=== PATIENT | male | born 1980 | race Hispanic/Latino ===

== ENCOUNTER 2021-06-03 09:21 | Emergency (ER) | payer OTHER ==
[~2021-06-03] VITALS: Ht 165.1 cm; Wt 102.1 kg
== END 2021-06-03 09:58 | disposition home or self-care (01) ==
LOC: ER 09:24
DX: S31.115A Laceration without foreign body of abdominal wall, periumbilic region without penetration into peritoneal cavity, initial encounter (principal); X58.XXXA Exposure to other specified factors, initial encounter; Y93.89 Activity, other specified
CPT/HCPCS: 99282

== ENCOUNTER 2024-06-06 20:12 | Inpatient (IN) | payer BC, OTHER ==
[~2024-06-06] VITALS: Ht 165.1 cm; Wt 88.5 kg
[2024-06-06 21:25] VITALS: RESP 18; TEMP 101.3
[2024-06-06 21:45] LABS: BASOPHILS % 0.2 % (0.0-1.0); HEMATOCRIT 46.3 % (38.2-49.6); HEMOGLOBIN 16.1 g/dL (14.0-18.0); LYMPHOCYTES # (AUTO) 0.8 (1.0-3.2); LYMPHOCYTES % 6.2 % (18.0-39.1); MEAN CORPUSCULAR HEMOGLOBIN 28.4 pg (28-32); MEAN CORPUSCULAR HGB CONC 34.8 g/dL (31-35); MEAN CORPUSCULAR VOLUME 81.7 fL (81-99); MONOCYTES # (AUTO) 1.4 (0.2-0.8); NEUTROPHILS # (AUTO) 10.2 (2.1-6.9); PLATELET COUNT 130 x10e3/uL (140-360); RED BLOOD COUNT 5.67 x10e6/uL (4.3-5.7); RED CELL DISTRIBUTION WIDTH 12.9 % (11.7-14.4); WHITE BLOOD COUNT 12.49 x10e3/uL (4.8-10.8)
[2024-06-06 22:05] LABS: ALBUMIN 3.8 g/dL (3.5-5.0); ANION GAP 15.8 mmol/L (8-16); BILIRUBIN,TOTAL 1.2 mg/dL (0.2-1.2); CALCIUM 8.9 mg/dL (8.4-10.2); CREATININE, SERUM 0.87 mg/dL (0.72-1.25); POTASSIUM 3.8 mmol/L (3.5-5.1); TOTAL PROTEIN 7.7 g/dL (6.5-8.1)
[2024-06-06] MEDS: Morphine 4mg INJECTION 4 MG/ML INJ IV STA (22:05)
[2024-06-06] MEDS: SODIUM CHLORIDE 0.9% 1000ML 1,000 ML IV STA (22:05)
[2024-06-06] MEDS: ONDANSETRON HCL INJ 2MG/ML 2ML 2 MG/ML VIAL IV STA (22:05)
[2024-06-06] MEDS: ACETAMINOPHEN 325 MG TAB PO STA (22:05)
[2024-06-06 22:15] VITALS: PULSE 93
[2024-06-06] MEDS ORDERED: IOPAMIDOL 370 MG/ML 100 ML INFUS..BTL INJ ONE (22:20)
[2024-06-06 23:46] LABS: CLARITY,URINE CLEAR (CLEAR); COLOR,URINE YELLOW (YELLOW); GLUCOSE, URINE NEGATIVE (NEGATIVE); KETONES,URINE NEGATIVE (NEGATIVE); LEUKOCYTE ESTERASE ,URINE NEGATIVE (NEGATIVE); NITRITE,URINE NEGATIVE (NEGATIVE); PH,URINE 6 (5 - 7); PROTEIN,URINE DIPSTICK 1+ (NEGATIVE)
[2024-06-06 23:47] LABS: BILIRUBIN,URINE NEGATIVE (NEGATIVE)
[2024-06-06 23:53] LABS: BACTERIA,URINE MODERATE /HPF; EPITHELIAL CELLS,URINE FEW /LPF
[2024-06-07] VITALS (8 sets, daily range): BP systolic 114–142; BP diastolic 62–82; PULSE 89–115; RESP 16–19; TEMP 97.5–101.7; O2SAT 96–99
[2024-06-07] MEDS: SODIUM CHLORIDE 0.9% 1000ML 1,000 ML IV SCH (04:00)
[2024-06-07] MEDS: ONDANSETRON HCL INJ 2MG/ML 2ML 2 MG/ML VIAL IV PRN (04:03)
[2024-06-07] MEDS: Morphine 4mg INJECTION 4 MG/ML INJ IV PRN (04:04)
[2024-06-07 06:43] LABS: BASOPHILS % 0.2 % (0.0-1.0); EOSINOPHILS % 0.1 % (0.0-6.0); HEMATOCRIT 44.3 % (38.2-49.6); HEMOGLOBIN 15.1 g/dL (14.0-18.0); LYMPHOCYTES # (AUTO) 0.8 (1.0-3.2); LYMPHOCYTES % 5.9 % (18.0-39.1); MEAN CORPUSCULAR HEMOGLOBIN 28.4 pg (28-32); MEAN CORPUSCULAR HGB CONC 34.1 g/dL (31-35); MEAN CORPUSCULAR VOLUME 83.3 fL (81-99); MONOCYTES # (AUTO) 1.7 (0.2-0.8); MONOCYTES % 12.9 % (4.4-11.3); NEUTROPHILS # (AUTO) 10.6 (2.1-6.9); NEUTROPHILS % 80.4 % (38.7-80.0); RED BLOOD COUNT 5.32 x10e6/uL (4.3-5.7); WHITE BLOOD COUNT 13.15 x10e3/uL (4.8-10.8)
[2024-06-07 06:48] LABS: PLATELET COUNT 121 x10e3/uL (140-360)
[2024-06-07 06:58] LABS: ALBUMIN 3.3 g/dL (3.5-5.0); ALBUMIN/GLOBULIN RATIO 0.9 (0.8-2.0); ANION GAP 12.9 mmol/L (8-16); BILIRUBIN,TOTAL 1.1 mg/dL (0.2-1.2); CALCIUM 8.5 mg/dL (8.4-10.2); CREATININE, SERUM 0.84 mg/dL (0.72-1.25); POTASSIUM 3.9 mmol/L (3.5-5.1)
[2024-06-07] MEDS: FAMOTIDINE 20 MG/2 ML VIAL IV SCH (09:22)
[2024-06-07] MEDS: ACETAMINOPHEN 1000 MG/100 ML IV PRN (12:02)
[2024-06-07] MEDS ORDERED: FENTANYL CITRATE/PF 100MCG/2 ML INJ ONE ×2 (13:46→14:17)
[2024-06-07] MEDS ORDERED: ROCURONIUM BROMIDE 1 ML IV ONE (13:46)
[2024-06-07] MEDS ORDERED: PROPOFOL IV EMULSION 10 MG/ML 20 ML VIAL ONE (13:46)
[2024-06-07] MEDS ORDERED: ACETAMINOPHEN 1000 MG/100 ML 100 ML IV ONE (13:47)
[2024-06-07] MEDS ORDERED: SEVOFLURANE INHAL SOLN 250 ML PEN BTL ONE (13:47)
[2024-06-07] MEDS ORDERED: SUGAMMADEX SODIUM 200 MG/2 ML VIAL IV ONE (14:36)
[2024-06-08] VITALS (7 sets, daily range): BP systolic 105–122; BP diastolic 59–74; PULSE 75–85; RESP 16–20; TEMP 97.7–98.9; O2SAT 98–99
[2024-06-08 05:43] LABS: BASOPHILS % 0.2 % (0.0-1.0); HEMATOCRIT 39.8 % (38.2-49.6); HEMOGLOBIN 13.4 g/dL (14.0-18.0); LYMPHOCYTES # (AUTO) 0.7 (1.0-3.2); LYMPHOCYTES % 6.6 % (18.0-39.1); MEAN CORPUSCULAR HEMOGLOBIN 28.7 pg (28-32); MEAN CORPUSCULAR HGB CONC 33.7 g/dL (31-35); MEAN CORPUSCULAR VOLUME 85.2 fL (81-99); MONOCYTES # (AUTO) 1.3 (0.2-0.8); MONOCYTES % 12.1 % (4.4-11.3); NEUTROPHILS # (AUTO) 8.6 (2.1-6.9); NEUTROPHILS % 80.6 % (38.7-80.0); PLATELET COUNT 116 x10e3/uL (140-360); RED BLOOD COUNT 4.67 x10e6/uL (4.3-5.7); RED CELL DISTRIBUTION WIDTH 12.9 % (11.7-14.4); WHITE BLOOD COUNT 10.62 x10e3/uL (4.8-10.8)
[2024-06-08 06:49] LABS: ANION GAP 14.1 mmol/L (8-16); CREATININE, SERUM 0.78 mg/dL (0.72-1.25); POTASSIUM 4.1 mmol/L (3.5-5.1)
[2024-06-08] MEDS: SENNOSIDES 8.6 MG TAB PO SCH (08:53)
[2024-06-09] VITALS (10 sets, daily range): BP systolic 113–141; BP diastolic 58–90; PULSE 62–82; RESP 17–19; TEMP 98.1–99.7; O2SAT 97–100
[2024-06-09 07:45] LABS: BASOPHILS % 0.4 % (0.0-1.0); EOSINOPHILS # (AUTO) 0.1 (0.0-0.4); EOSINOPHILS % 0.5 % (0.0-6.0); HEMATOCRIT 38.9 % (38.2-49.6); HEMOGLOBIN 12.9 g/dL (14.0-18.0); LYMPHOCYTES # (AUTO) 1.7 (1.0-3.2); LYMPHOCYTES % 17.3 % (18.0-39.1); MEAN CORPUSCULAR HEMOGLOBIN 28.4 pg (28-32); MEAN CORPUSCULAR HGB CONC 33.2 g/dL (31-35); MEAN CORPUSCULAR VOLUME 85.7 fL (81-99); MONOCYTES % 10.2 % (4.4-11.3); NEUTROPHILS # (AUTO) 6.9 (2.1-6.9); NEUTROPHILS % 71.2 % (38.7-80.0); PLATELET COUNT 147 x10e3/uL (140-360); RED BLOOD COUNT 4.54 x10e6/uL (4.3-5.7); RED CELL DISTRIBUTION WIDTH 13.1 % (11.7-14.4); WHITE BLOOD COUNT 9.66 x10e3/uL (4.8-10.8)
[2024-06-09 07:57] LABS: ANION GAP 11.7 mmol/L (8-16); CALCIUM 8.2 mg/dL (8.4-10.2); CREATININE, SERUM 0.78 mg/dL (0.72-1.25); POTASSIUM 3.7 mmol/L (3.5-5.1)
[2024-06-09] MEDS: SENNOSIDES 8.6 MG TAB PO SCH (09:00)
[2024-06-09] MEDS: DOCUSATE SODIUM 100 MG CAP PO SCH (09:00)
[2024-06-09] MEDS: METRONIDAZOLE 500MG/NS 100ML 100 ML IV SCH (14:52)
[2024-06-09] MEDS: LOPERAMIDE HCL 2 MG CAP PO ONE (18:42)
[2024-06-09 21:59] LABS: CDIFF AG QUIK CHEK NEGATIVE (NEGATIVE); CDIFF TOX QUIK CHEK NEGATIVE (NEGATIVE)
[2024-06-10] VITALS (9 sets, daily range): BP systolic 122–153; BP diastolic 74–90; PULSE 78–83; RESP 18–19; TEMP 98.2–100.1; O2SAT 99–100
[2024-06-10 06:42] LABS: BASOPHILS # (AUTO) 0.1 (0.0-0.1); BASOPHILS % 0.5 % (0.0-1.0); EOSINOPHILS # (AUTO) 0.1 (0.0-0.4); EOSINOPHILS % 1.2 % (0.0-6.0); HEMATOCRIT 40.2 % (38.2-49.6); HEMOGLOBIN 13.8 g/dL (14.0-18.0); LYMPHOCYTES # (AUTO) 1.8 (1.0-3.2); LYMPHOCYTES % 17.5 % (18.0-39.1); MEAN CORPUSCULAR HEMOGLOBIN 28.5 pg (28-32); MEAN CORPUSCULAR HGB CONC 34.3 g/dL (31-35); MEAN CORPUSCULAR VOLUME 82.9 fL (81-99); MONOCYTES # (AUTO) 1.1 (0.2-0.8); NEUTROPHILS % 68.6 % (38.7-80.0); PLATELET COUNT 208 x10e3/uL (140-360); RED BLOOD COUNT 4.85 x10e6/uL (4.3-5.7); RED CELL DISTRIBUTION WIDTH 12.9 % (11.7-14.4); WHITE BLOOD COUNT 10.26 x10e3/uL (4.8-10.8)
[2024-06-10 06:59] LABS: ANION GAP 13.6 mmol/L (8-16); CALCIUM 8.5 mg/dL (8.4-10.2); CREATININE, SERUM 0.77 mg/dL (0.72-1.25); POTASSIUM 3.6 mmol/L (3.5-5.1)
[2024-06-10 13:06] LABS: BAND NEUTROPHILS % (MANUAL) 2 %; EOSINOPHILS % (MANUAL) 2 % (0-7); LYMPHOCYTES % (MANUAL) 18 % (19-48); MONOCYTES % (MANUAL) 11 % (3.4-9.0); NEUTROPHILS % (MANUAL) 67 % (40-74)
[2024-06-10 13:07] LABS: PLATELET ESTIMATE ADEQUATE; PLATELET MORPHOLOGY COMMENT NORMAL; RBC MORPHOLOGY COMMENT NORMAL
[2024-06-10] MEDS: ACETAMINOPHEN 325 MG TAB PO PRN (20:41)
[2024-06-11 04:55] VITALS: BP 122/85; PULSE 70; RESP 18; TEMP 98.4; O2SAT 100
[2024-06-11] MEDS ORDERED: ACETAMINOPHEN325 M1 PO (05:09)
[2024-06-11] MEDS ORDERED: METRONIDAZOLE500 MG PO (05:09)
[2024-06-11] MEDS ORDERED: CEPHALEXIN500 MG PO (05:09)
[2024-06-11] MEDS ORDERED: ONDANSETRON ODT4 MG PO (05:10)
[2024-06-11 07:54] VITALS: BP 128/80; PULSE 77; RESP 19; TEMP 98.5; O2SAT 99
[2024-06-11 08:57] VITALS: BP 128/80; PULSE 77; RESP 19; TEMP 98.5; O2SAT 99
== END 2024-06-11 10:28 | disposition home or self-care (01) | DRG 853 ==
LOC: ER 20:29 → ERHOLD 23:31 → MED/SURG2 06-07 00:40
PROVIDERS: ADMIT Internal Medicine; ATTEND Internal Medicine
PROC: 3E0333Z Introduction of Anti-inflammatory into Peripheral Vein, Percutaneous Approach (ICD-10-PCS; 2024-06-06)
PROC: 0DTJ4ZZ Resection of Appendix, Percutaneous Endoscopic Approach (ICD-10-PCS; principal; 2024-06-07 13:51)
DX: A41.9 Sepsis, unspecified organism (principal); K35.32 Acute appendicitis with perforation, localized peritonitis, and gangrene, without abscess; N39.0 Urinary tract infection, site not specified; E87.1 Hypo-osmolality and hyponatremia; A04.9 Bacterial intestinal infection, unspecified; D69.6 Thrombocytopenia, unspecified; Z88.6 Allergy status to analgesic agent
CPT/HCPCS: 36415; 74177; 80048; 80053; 81001; 83605; 83690; 85025; 87040; 87045; 87086; 87324; 87449; 88304; 93005; 99284; J0696; J2270; J2405; J2543; J7030; Q9967